=== PATIENT | female | born 1975 | race Caucasian/White ===

== ENCOUNTER 2023-11-26 18:04 | Emergency (ER) | payer OTHER, SELFPAY ==
[2023-11-26 18:14] VITALS: BP 144/90
[2023-11-26 19:26] LABS: % Basophils 0.5 % (0-2); % Eosinophils 3.7 % (0-6); % Immature Granulocytes 0.3 % (0-0.5); % Lymphocytes 36.4 % (20.5-51.1); % Monocytes 11.9 % (1.7-9.3); % Neutrophils 47.2 % (42.2-75.2); Absolute Eosinophils 0.3 10^3/uL (0-0.7); Absolute Lymphocytes 2.8 10^3/uL (1.2-3.4); Absolute Monocytes 0.9 10^3/uL (0.1-0.6); Absolute Neutrophils 3.7 10^3/uL (1.4-6.5); Hematocrit 36.9 % (37.0-47.0); Hemoglobin 12.1 g/dL (12.0-16.0); Mean Corp Hgb Conc. 32.8 g/dL (33.0-37.0); Mean Corpuscular Hgb 24.1 pg (27.0-31.0); Mean Corpuscular Volume 73.4 fL (81.0-99.0); Mean Platelet Volume 9.7 fL (7.4-10.4); Nucleated Red Blood Cells % 0 %; Platelet Count 307 10^3/uL (130-400); Red Blood Cell Count 5.03 10^6/uL (4.20-5.40); Red Cell Dist. Width 17.2 % (11.5-14.5); White Blood Cell Count 7.7 10^3/uL (4.8-10.8)
[2023-11-26 19:36] LABS: HCG, Serum Qualitative Screen Negative
[2023-11-26 19:40] LABS: ALT (SGPT) 15 U/L (0-35); AST (SGOT) 31 U/L (14-36); Albumin 4.5 g/dl (3.5-5.0); Alkaline Phosphatase 91 U/L (38-126); Blood Urea Nitrogen 15 mg/dl (7-17); Calcium 9.7 mg/dl (8.4-10.2); Carbon Dioxide 23 mmol/L (22-30); Chloride 104 mmol/L (98-107); Glucose 79 mg/dl (70-99); Potassium 4.1 mmol/L (3.5-5.1); Sodium 140 mmol/L (135-145); Total Bilirubin 0.5 mg/dl (0.2-1.3); Total Protein 7.4 g/dl (6.3-8.2); eGFR > 60.00
[2023-11-26 20:00] VITALS: BP 140/88
--- NOTE | 2023-11-26 20:31 | ED.SKININJ ---
HPI-Injury
General
Chief Complaint: Skin Problem
Source: patient
Exam Limitations: none
Time Seen by Provider: 11/26/23 20:20
History of Present Illness-Injury
Initial Injury comments:
48-year-old female otherwise healthy presents with itchy rash starting on the left leg worsening since then and spread to the right leg face upper chest. She the rash is now forming bubbles and blisters. She tried mupirocin ointment. She denies
fevers or chills. No other complaints at this time
Past History
Past History
ED Past Medical History: None
ED Past Surgical History: None
Social History
Tobacco: Non-smoker
Alcohol: Occasional
Drug: None
Personal:
Living: with family
Employment: Employed
Phy Exam
Physical Exam
Physical Exam:
General: Well-appearing female no acute respiratory distress
HEENT: Normocephalic atraumatic
Skin: Pruritic slightly raised blistery rash over the left leg with pruritic rash over the right knee left neck bilateral upper extremities. The left leg rashes in linear formation. No surrounding fluctuance or induration.
Course
Orders/Labs/Results
Orders:
Orders
11/26/23 18:17
Test Result ONCE
11/26/23 19:15
Complete Blood Count/With Diff Urgent
Comprehensive Metabolic Panel Urgent
HCG, Serum Qualitative Screen Urgent
11/26/23 20:39
Prednisone [Deltasone] 50 mg PO NOW STA
Abnormal Lab Results
11/26/23
19:15
Hct 36.9 L %
(37.0-47.0)
MCV 73.4 L fL
(81.0-99.0)
MCH 24.1 L pg
(27.0-31.0)
MCHC 32.8 L g/dL
(33.0-37.0)
RDW 17.2 H %
(11.5-14.5)
Absolute Monos (auto) 0.9 H 10^3/uL
(0.1-0.6)
Monocytes % 11.9 H %
(1.7-9.3)
11/26/23 19:15
11/26/23 19:15
Vital Signs
Initial and Last Documented VS:
Initial Vital Signs
Temp Pulse Resp BP Pulse Ox
98.2 F 114 18 144/90 99
11/26/23 18:14 11/26/23 18:14 11/26/23 18:14 11/26/23 18:14 11/26/23 18:14
Last Documented Vital Signs
Temp Pulse Resp BP Pulse Ox
98.2 F 96 18 140/88 98
11/26/23 18:14 11/26/23 20:00 11/26/23 18:14 11/26/23 20:00 11/26/23 20:00
MDM/Problems Addressed
Differential Diagnosis Includes:
Rash on leg. No sign of infectious source. This is likely an allergic reaction likely to poison irwin. No underlying abscess to drain. Will recommend prednisone taper and antihistamines. Stable for discharge. Labs are drawn through triage which
are negative for new finding
*Critical Care Note
Total Time (30-74mins, 75-104mins- exclusive of procedures): Not Applicable
ED Attending Note
-
Portions of this chart may have been created with voice recognition software.� Occasional wrong word or��sound alike� substitutions may have occurred due to the inherent limitations of voice recognition software.
Discharge Plan
Departure
Patient Disposition: Home (Routine Discharge)
Date of Disposition: 11/26/23
Time of Disposition: 20:43
Patient with high blood pressure during this ER visit?: No
Discharge Problem:
Contact dermatitis
Instructions: Poison irwin
Prescriptions:
New
prednisone 10 mg Tablet
See Rx Instructions .ROUTE .COMPLEX Qty: 45 0RF
Rx Instructions:
Take By Mouth:
50 mg daily x3 days, 40 mg daily x3 days,
30 mg daily x3 days, 20 mg daily x3 days,
10 mg daily x3 days
triamcinolone acetonide 0.1 % cream
1 applic topical TID Qty: 15 0RF
No Action
Vitamin B-12
1 tab PO DAILY
Vitamin C
1 tab PO DAILY
Vitamin E
1 tab PO DAILY
Referrals:
Milo Beaver DO [Family Provider] -
Activity Restrictions/Additional Instructions:
Use steroid as directed and topical cream as directed. Continue with Benadryl every 4 hours as needed.
Interventions
Interventions:
*Risk Screen - Suicide Last Done: 11/26/23 18:14
*General Assessment Last Done: 11/26/23 18:14
*Neglect/Abuse Screening Last Done: 11/26/23 18:14
ED-Skin Assessment Last Done: 11/26/23 19:19
Discharge Date and Time
Print Language: THAI
[2023-11-26] MEDS: DELTASONE 50 MG PO (20:44)
== END 2023-11-26 21:10 | disposition home or self-care (01) ==
LOC: EMR 18:04
PROVIDERS: Emergency Medicine; EMERGENCY PHYSICIAN Emergency Medicine; FAMILY PHYSICIAN Family Medicine
DX: L25.9 Unspecified contact dermatitis, unspecified cause (principal)
CPT/HCPCS: 99283; 80053; 84703; 85025

== ENCOUNTER 2025-01-20 12:18 | Emergency (ER) | payer OTHER, SELFPAY ==
[2025-01-20 12:23] VITALS: BP 136/80
[2025-01-20 12:43] LABS: Hematocrit 42.8 % (37.0-47.0); Hemoglobin 13.7 g/dL (12.0-16.0); Mean Corp Hgb Conc. 32.0 g/dL (33.0-37.0); Mean Corpuscular Volume 83.3 fL (81.0-99.0); Nucleated Red Blood Cells % 0 %; Platelet Count 261 10^3/uL (130-400); Red Cell Dist. Width 15.7 % (11.5-14.5)
[2025-01-20 12:59] LABS: ALT (SGPT) 15 U/L (0-35); AST (SGOT) 27 U/L (14-36); Albumin 4.6 g/dl (3.5-5.0); Alkaline Phosphatase 122 U/L (38-126); Blood Urea Nitrogen 18 mg/dl (7-17); Calcium 9.5 mg/dl (8.4-10.2); Carbon Dioxide 24 mmol/L (22-30); Chloride 106 mmol/L (98-107); Glucose 92 mg/dl (70-99); Potassium 4.3 mmol/L (3.5-5.1); Sodium 138 mmol/L (135-145); Total Protein 7.8 g/dl (6.3-8.2); eGFR > 60.00
--- NOTE | 2025-01-20 15:18 | ED.GENMED ---
History of Present Illness
General
Chief Complaint: Back Pain
Source: patient
Exam Limitations: none
Time Seen by Provider: 01/20/25 14:46
History of Present Illness
History of Present Illness:
Note:
CHIEF COMPLAINT(S)
Severe back pain radiating to the leg.
HISTORY OF PRESENT ILLNESS
The patient is a 49-year-old female presenting with severe pain in the back, radiating down the leg. The pain started as mild discomfort approximately four days ago but escalated significantly last night, impairing her mobility. She described the
pain as starting in the back and extending to the leg, causing a sharp, freezing sensation while walking. The pain does not reach the toes. The patient mentioned that resting in a certain position alleviates the pain, whereas prolonged sitting or
lying exacerbates it. She denied any urinary symptoms, abdominal pain, or recent heavy lifting. There is no known official diagnosis of sciatica, although she admits experiencing similar pain in the past, which resolved without intervention. Her
occupation involves working at a [employer], and she noted the pain prevented her from working today. The patient also mentioned a history of a lumbar disc issue.
PHYSICAL EXAM
General: Alert, no acute distress.
Skin: Warm, dry.
Head: Normocephalic, atraumatic.
Neck: Supple, trachea midline.
Eye Ears, nose, mouth and throat: Oral mucosa moist.
Cardiovascular: Normal peripheral perfusion, No edema.
Respiratory: Respirations are non-labored.
Gastrointestinal: Abdomen nondistended.
Back: Normal range of motion, Normal alignment, no midline lumbar tenderness to percussion, no obvious deformities.
Musculoskeletal: Negative straight leg raise bilaterally, DTRs (deep tendon reflexes) normal bilaterally.
Neurological: Alert and oriented to person, place, time, and situation, No focal neurological deficit observed.
Psychiatric: Cooperative, appropriate mood & affect.
PROBLEM LIST
Acute problems:
- Severe back pain with leg radiation
- Lumbar radiculopathy
PLAN
- Administer an injection of ketorolac for pain relief, effect similar to ibuprofen.
- Prescribe oral steroid therapy to help reduce inflammation, beginning with a dose administered in the ER.
- Prescribe narcotic pain medication for home use as needed, with instructions to avoid driving after taking the medication.
- Advise the patient regarding proper sleeping positions to minimize spinal strain.
- Discuss steps to include possible further intervention (such as injections or MRI) if there is no improvement with initial treatment.
- Consider future physical therapy depending on improvement.
- Recommend follow-up with the patients primary care physician for an ongoing care plan, potentially involving a back specialist if symptoms persist.
DIFFERENTIAL DIAGNOSIS
The Differential Diagnosis includes, in no particular order and is not limited to:
- Lumbar radiculopathy
- Sciatica
- Herniated disc
- Spinal stenosis
- Degenerative disc disease
- Muscle strain or sprain
- Vertebral fracture
- Ankylosing spondylitis
- Piriformis syndrome
- Sacroiliitis
Disposition:
SUMMARY OF ENCOUNTER
The patient is a female with a history of lumbar disc issues, presenting with severe right low back pain radiating to the upper thigh. The patient reports that the pain is positional. A vascular examination was normal, with no signs of cauda equina
syndrome or spinal cord impingement. There are no risk factors to suggest an infection, and the patient denies experiencing any urinary symptoms. Based on the clinical presentation, lumbar radiculopathy is suspected.
ASSESSMENT
Lumbar radiculopathy suspected based on clinical presentation, given the severe right low back pain radiating to the upper thigh and positional nature of the pain.
PLAN
The patient will be referred to a primary care physician (PCP) for an appointment on Thursday and also to spine/pain management for further evaluation if symptoms persist. An MRI will be considered if symptoms do not improve.
MEDICATION RECONCILIATION
Administer an injection of ketorolac in the emergency department for pain relief similar to ibuprofen. Prescribe oral steroid therapy to reduce inflammation, starting with a dose administered in the ER. Prescribe narcotic pain medication for home
use as needed, with instructions to avoid driving after taking the medication.
MEDICAL DECISION MAKING
- Number and Complexity of Problems Addressed: Chronic conditions affecting care include a history of a lumbar disc issue. Differential diagnosis includes lumbar radiculopathy, potential sciatica, herniated disc, spinal stenosis, degenerative disc
disease, muscle strain or sprain, vertebral fracture, ankylosing spondylitis, piriformis syndrome, and sacroiliitis.
- Risk: Prescription drug management was required. Consideration of admission/observation was made, but the patient is considered safe for outpatient management with a close follow-up.
DIAGNOSIS
1. M54.16 - Radiculopathy, lumbar region
2. M54.5 - Low back pain
Past History
Past History
ED Past Medical History: None
ED Past Surgical History: None
Social History
Tobacco: Non-smoker
Alcohol: Occasional
Drug: None
Personal:
Living: with family
Employment: Employed
Phy Exam
Physical Exam
Physical Exam:
.
Course
Orders/Labs/Results
Orders:
Orders
01/20/25 12:32
Complete Blood Count/With Diff Urgent
Comprehensive Metabolic Panel Urgent
01/20/25 15:15
Prednisone [Deltasone] 50 mg PO NOW STA
01/20/25 15:18
Ketorolac [Toradol] 60 mg IM NOW STA
Abnormal Lab Results
01/20/25
12:32
MCH 26.7 L pg
(27.0-31.0)
MCHC 32.0 L g/dL
(33.0-37.0)
RDW 15.7 H %
(11.5-14.5)
Absolute Monos (auto) 0.8 H 10^3/uL
(0.1-0.6)
Monocytes % 9.6 H %
(1.7-9.3)
BUN 18 H mg/dl
(7-17)
Creatinine 0.5 L mg/dL
(0.6-1.0)
01/20/25 12:32
01/20/25 12:32
Vital Signs
Initial and Last Documented VS:
Initial Vital Signs
Temp Pulse Resp Pulse Ox
98.0 F 85 18 97
01/20/25 12:21 01/20/25 12:21 01/20/25 12:21 01/20/25 12:21
Last Documented Vital Signs
Temp Pulse Resp BP Pulse Ox
98.0 F 85 18 136/80 97
01/20/25 12:21 01/20/25 12:21 01/20/25 12:21 01/20/25 12:23 01/20/25 12:21
*Pulse Oximetry
SaO2: 97
Oxygen Mode of Delivery: Room air
Patient hypoxic: no
*Critical Care Note
Total Time (30-74mins, 75-104mins- exclusive of procedures): Not Applicable
ED Attending Note
-
Portions of this chart may have been created with voice recognition software.� Occasional wrong word or��sound alike� substitutions may have occurred due to the inherent limitations of voice recognition software.
Discharge Plan
Departure
Patient Disposition: Home (Routine Discharge)
Date of Disposition: 01/20/25
Time of Disposition: 15:18
Patient with high blood pressure during this ER visit?: No
Discharge Problem:
Acute lumbar radiculopathy
Instructions: Radiculopathy (DC), BLOOD PRESSURE
Prescriptions:
New
prednisone 10 mg Tablet
See Rx Instructions .ROUTE .COMPLEX Qty: 45 0RF
Rx Instructions:
Take By Mouth:
50 mg daily x3 days, 40 mg daily x3 days,
30 mg daily x3 days, 20 mg daily x3 days,
10 mg daily x3 days
hydrocodone-acetaminophen 5-325 mg tablet
2 tab PO Q6H PRN (Reason: Pain) Qty: 15 0RF
No Action
Vitamin B-12
1 tab PO DAILY
Vitamin C
1 tab PO DAILY
Vitamin E
1 tab PO DAILY
prednisone 10 mg Tablet
See Rx Instructions .ROUTE .COMPLEX Qty: 45 0RF
Rx Instructions:
Take By Mouth:
50 mg daily x3 days, 40 mg daily x3 days,
30 mg daily x3 days, 20 mg daily x3 days,
10 mg daily x3 days
triamcinolone acetonide 0.1 % cream
1 applic topical TID Qty: 15 0RF
Referrals:
Js Hanks MD [Active, Anesthesiology]
Milo Beaver DO [Family Provider, Family Practice]
Activity Restrictions/Additional Instructions:
Please see your doctor on Thursday as planned. If symptoms persist an outpatient MRI may be necessary. In addition if symptoms persist, follow-up with spine/pain management may be helpful. Return immediately for numbness, tingling, motor weakness,
worsening pain, fevers, bladder or bowel incontinence or any other concerns.
Interventions
Interventions:
*Risk Screen - Suicide Last Done: 01/20/25 12:23
*General Assessment Last Done: 01/20/25 12:23
*Neglect/Abuse Screening Last Done: 01/20/25 12:23
*ED COVID-19 Vaccine History Last Done: 01/20/25 12:23
*ED Influenza Vaccine History Last Done: 01/20/25 12:23
Discharge Date and Time
Print Language: NEPALI
[2025-01-20] MEDS: TORADOL 60 MG IM (16:22)
[2025-01-20] MEDS: DELTASONE 50 MG PO (16:23)
[2025-01-20 16:43] VITALS: BP 126/88
== END 2025-01-20 16:45 | disposition home or self-care (01) ==
LOC: EMR 12:18
PROVIDERS: Emergency Medicine; EMERGENCY PHYSICIAN Emergency Medicine; FAMILY PHYSICIAN Family Medicine
DX: M54.16 Radiculopathy, lumbar region (principal)
CPT/HCPCS: 99283; 96372; 80053; 85025